=== PATIENT | female | born 1955 | race Caucasian/White ===

== ENCOUNTER → 2017-01-12 | Outpatient (CLI) | payer OTHER ==
--- NOTE | 2017-01-12 08:43 | KCIC ---
PROCEDURE Orbit radiograph HISTORY Pre MRI screen, previous metal in the eye which has been removed COMPARISON None FINDINGS Two views of the orbits are submitted. No metallic foreign body is identified in the region of the orbits. IMPRESSION No metallic foreign body is identified. Electronically signed by: Robert Holm MD (Jan 12, 2017 08:42:53)
--- NOTE | 2017-01-12 09:29 | KCIC ---
PROCEDURE MRI left shoulder without contrast dated 01/12/2017. HISTORY Left shoulder pain and limited range of motion since August. No known injury. TECHNIQUE Routine multiplanar multisequence MR imaging left shoulder performed. COMPARISON None. FINDINGS Study is limited due to motion artifact and poor signal. Intermediate T2 signal throughout the supraspinatus and infra spinatus portions of the rotator cuff. No full thickness tear or retracted tear. Mild interstitial partial tearing of the anterior infra spinatus. Mild articular and bursal surface fraying of the anterior supraspinatus. Subscapularis is intact. Mild hypertrophic change of the acromioclavicular joint. Mild undersurface spurring of the acromion. Trace amount of subacromial/subdeltoid bursal fluid. Acromion is type 1 morphology. Long head biceps tendon and biceps anchor are intact. Extra-articular biceps tendon courses within the bicipital groove. Glenoid labrum is not well evaluated due to motion. Blunted morphology of the posterior labrum from 12:00 to 6:00. Small subchondral cysts at the posterior glenoid. No displaced labral tear or perilabral cyst. No significant glenohumeral joint effusion or loose body. Mild degenerative change of the glenohumeral joint. Suprascapular and spinoglenoid notches are clear. No significant muscle edema or muscle atrophy. IMPRESSION - Mild to moderate rotator cuff tendinopathy with no evidence of full-thickness tear. - Mild AC joint arthropathy with undersurface spurring of the distal clavicle. Small amount of subacromial/subdeltoid bursal fluid. - Mild degenerative change of the glenohumeral joint with degenerative fraying of the posterior labrum. No discrete labral tear. Electronically signed by: Vishal Schaeffer (Jan 12, 2017 09:28:18)
== END | disposition home or self-care (01) ==
LOC: KCIC MRI 07:42
PROVIDERS: ATTEND Physician Assistant Medical
DX: M19.012 Primary osteoarthritis, left shoulder (principal)
CPT/HCPCS: 70030; 73221